=== PATIENT | male | born 1950 | race Two or more races ===

== ENCOUNTER 2020-01-02 19:28 | Emergency (ER) | payer MEDICARE, MEDICAID ==
[~2020-01-02] VITALS: Ht 172.7 cm; Wt 81.6 kg
[~2020-01-02 19:28] MED LIST: ALB2.5IS NEB; AMLO5TAB15 PO; ASPI81CH43 GT; ATOR40TA52 PO; BUDE160A3 INH; CARV6.2551 PO; CLOP75TA28 PO; DOCU-94 PO; GUAI100S6 PO; INSLANTI SC; LEVA3NEB9 IN; LEVAAER4 IN; LORA-352 PO; METF-370 PO; METF-372 PO; OMEP20CA74 OR; OXYC10TA44 PO; POTA-220 PO; TRIA25TA3 PO; ZOLP10TA6 PO
[2020-01-02 20:17] LABS: Basophils # (auto) 0 10 ^3/uL (0-0.2); Basophils % (auto) 0.5 % (0.0-2.0); Eosinophils # (auto) 0.2 10 ^3/uL (0-0.8); Hemoglobin 17.8 g/dL (13.5-17.5); Lymphocytes # (auto) 1.1 10 ^3/uL (0.4-5.4); Mean Corpuscular Hemoglobin 30.7 pg (28.0-32.0); Monocytes # (auto) 0.8 10 ^3/uL (0-1.3)
[2020-01-02 20:19] LABS: Eosinophils % (auto) 2.4 % (0.0-7.0); Hematocrit 52.6 % (41.0-53.0); Lymphocytes % (auto) 13.5 % (10.0-50.0); Mean Corpuscular Hgb Conc. 33.9 g/dL (32.0-36.0); Mean Corpuscular Volume 90.4 fL (80.0-100.0); Monocytes % (auto) 9.7 % (0.0-12.0); Neutrophils % (auto) 73.9 % (37.0-80.0); Nucleated Red Blood Cells % 0.2 %; Platelet Count (auto) 212 10^3/uL (140-450); Red Blood Cells 5.82 10^6/uL (4.5-5.90); Red Cell Distribution Width 13.8 % (11.8-14.3); White Blood Cell 8.1 10^3/uL (4.4-10.8)
[2020-01-02 20:37] LABS: Albumin 3.4 g/dL (3.4-5.0); BUN/Creatinine Ratio 14.7; Calcium 8.9 mg/dL (8.5-10.1); Potassium 3.7 mmol/L (3.5-5.1)
[2020-01-02 20:42] LABS: Bilirubin, Total 0.7 mg/dL (0.2-1.0); Total Protein 7.4 g/dL (6.4-8.2)
[2020-01-02 21:43] LABS: Urine WBC None Seen /hpf (0 - 3)
[2020-01-02 21:52] LABS: Urine Bacteria NONE SEEN /hpf (None Seen); Urine Blood Negative /uL (Negative); Urine Specific Gravity 1.006 (1.001-1.035)
[2020-01-02] MEDS ORDERED: IOHEXOL 350 MG/ML 100ML IJ ONE (22:27)
[2020-01-03] MEDS ORDERED: MORPHINE SULFATE 4 MG/ML SYR/VIAL IV ONE (05:15)
[2020-01-03] MEDS ORDERED: ONDANSETRON HCL 4 MG/2 ML VIAL IV ONE (05:15)
[2020-01-03 05:43] VITALS: BP 147/81
== END 2020-01-03 06:00 | disposition short-term general hospital (02) ==
LOC: ER 19:28
DX: I63.12 Cerebral infarction due to embolism of basilar artery (principal); I10 Essential (primary) hypertension; E11.9 Type 2 diabetes mellitus without complications; I25.10 Atherosclerotic heart disease of native coronary artery without angina pectoris; Z87.891 Personal history of nicotine dependence
CPT/HCPCS: 36415; 70450; 70496; 70498; 80053; 81001; 82962; 84484; 85025; 93005; 96374; 96375; 99285; J2270; J2405; Q9967

== ENCOUNTER 2020-11-03 12:43 | Emergency (ER) | payer OTHER, MEDICAID ==
[~2020-11-03] VITALS: Ht 172.7 cm; Wt 79.4 kg
[~2020-11-03 12:43] MED LIST changes: +AMLO-489 PO; -AMLO5TAB15 PO
[2020-11-03] MEDS ORDERED: PROMETHAZINE HCL 25 MG/ML 1ML IV ONE (13:45)
[2020-11-03] MEDS ORDERED: SODIUM CHLORIDE 0.9% 1,000 ML IV ONE (13:45)
[2020-11-03 14:13] LABS: Basophils # (auto) 0 10 ^3/uL (0-0.2); Basophils % (auto) 0.1 % (0.0-2.0); Eosinophils # (auto) 0 10 ^3/uL (0-0.8); Eosinophils % (auto) 0.1 % (0.0-7.0); Hematocrit 45.7 % (41.0-53.0); Hemoglobin 15.3 g/dL (13.5-17.5); Lymphocytes # (auto) 1.4 10 ^3/uL (0.4-5.4); Lymphocytes % (auto) 7.5 % (10.0-50.0); Mean Corpuscular Hemoglobin 30.4 pg (28.0-32.0); Mean Corpuscular Hgb Conc. 33.5 g/dL (32.0-36.0); Mean Corpuscular Volume 90.9 fL (80.0-100.0); Monocytes % (auto) 5.4 % (0.0-12.0); Neutrophils % (auto) 86.9 % (37.0-80.0); Platelet Count (auto) 248 10^3/uL (140-450); Red Blood Cells 5.02 10^6/uL (4.5-5.90); Red Cell Distribution Width 14.7 % (11.8-14.3); White Blood Cell 18.4 10^3/uL (4.4-10.8)
[2020-11-03 14:43] LABS: Urine Bacteria NONE SEEN /hpf (None Seen); Urine Blood Negative /uL (Negative); Urine Specific Gravity 1.022 (1.001-1.035); Urine WBC 9 /hpf (0 - 3)
[2020-11-03 14:55] LABS: Albumin 3.3 g/dL (3.4-5.0); Calcium 8.5 mg/dL (8.5-10.1); Magnesium 2.5 mg/dL (1.6-2.6); Potassium 4.5 mmol/L (3.5-5.1)
[2020-11-03 14:59] LABS: BUN/Creatinine Ratio 32.2; Bilirubin, Total 1.2 mg/dL (0.2-1.0); Total Protein 6.3 g/dL (6.4-8.2)
[2020-11-03 15:24] VITALS: BP 101/47
[2020-11-03] MEDS ORDERED: KETOROLAC TROMETH 30 MG/ML 1ML VIAL IV ONE (15:30)
[2020-11-03] MEDS ORDERED: InsuLIN REG 1unit/0.01ml Soln (100units/ml) SC ONE (16:30)
== END 2020-11-03 17:20 | disposition home or self-care (01) ==
LOC: ER 12:43
DX: K52.9 Noninfective gastroenteritis and colitis, unspecified (principal); E11.65 Type 2 diabetes mellitus with hyperglycemia; E11.21 Type 2 diabetes mellitus with diabetic nephropathy; E86.1 Hypovolemia; E86.0 Dehydration; J44.9 Chronic obstructive pulmonary disease, unspecified; K21.9 Gastro-esophageal reflux disease without esophagitis; E44.1 Mild protein-calorie malnutrition; Z68.26 Body mass index [BMI] 26.0-26.9, adult; Z98.61 Coronary angioplasty status; Z87.891 Personal history of nicotine dependence
CPT/HCPCS: 36415; 71045; 80053; 81001; 82962; 83735; 85025; 93005; 96361; 96372; 96374; 96375; 99285; J1815; J1885; J2550; J7030

== ENCOUNTER 2020-12-18 18:51 | Emergency (ER) | payer OTHER, MEDICAID ==
[~2020-12-18] VITALS: Ht 172.7 cm; Wt 77.1 kg
[~2020-12-18 18:51] MED LIST changes: -LORA-352 PO; +LORA10TA6 PO
[2020-12-18 20:00] LABS: Basophils # (auto) 0.1 10 ^3/uL (0-0.2); Basophils % (auto) 1.1 % (0.0-2.0); Eosinophils # (auto) 0.3 10 ^3/uL (0-0.8); Eosinophils % (auto) 4.2 % (0.0-7.0); Hematocrit 47.4 % (41.0-53.0); Hemoglobin 16.5 g/dL (13.5-17.5); Lymphocytes # (auto) 1.4 10 ^3/uL (0.4-5.4); Lymphocytes % (auto) 17.2 % (10.0-50.0); Mean Corpuscular Hemoglobin 31.7 pg (28.0-32.0); Mean Corpuscular Hgb Conc. 34.8 g/dL (32.0-36.0); Monocytes # (auto) 0.6 10 ^3/uL (0-1.3); Monocytes % (auto) 7.6 % (0.0-12.0); Neutrophils # (auto) 5.5 10 ^3/uL (1.6-8.6); Neutrophils % (auto) 69.9 % (37.0-80.0); Nucleated Red Blood Cells % 0.2 %; Platelet Count (auto) 221 10^3/uL (140-450); Red Blood Cells 5.21 10^6/uL (4.5-5.90); White Blood Cell 7.9 10^3/uL (4.4-10.8)
[2020-12-18 20:14] LABS: Albumin 3.5 g/dL (3.4-5.0); Calcium 9.1 mg/dL (8.5-10.1); Potassium 3.5 mmol/L (3.5-5.1)
[2020-12-18 20:18] LABS: BUN/Creatinine Ratio 15.5; Bilirubin, Total 0.6 mg/dL (0.2-1.0); Total Protein 6.8 g/dL (6.4-8.2)
[2020-12-18 20:50] VITALS: BP 132/70
== END 2020-12-18 22:47 | disposition home or self-care (01) ==
LOC: ER 18:52
DX: L03.116 Cellulitis of left lower limb (principal); I25.10 Atherosclerotic heart disease of native coronary artery without angina pectoris; J44.9 Chronic obstructive pulmonary disease, unspecified; E11.9 Type 2 diabetes mellitus without complications; K21.9 Gastro-esophageal reflux disease without esophagitis; E78.5 Hyperlipidemia, unspecified; I10 Essential (primary) hypertension; Z87.891 Personal history of nicotine dependence; Z98.61 Coronary angioplasty status; Z79.899 Other long term (current) drug therapy; Z79.82 Long term (current) use of aspirin
CPT/HCPCS: 36415; 80053; 85025; 93005; 93971

== ENCOUNTER 2022-07-26 05:16 | Inpatient (IN) | payer OTHER ==
[~2022-07-26] VITALS: Ht 157.5 cm; Wt 74.5 kg
[2022-07-26] MEDS ORDERED: SODIUM CHLORIDE 0.9% 1,000 ML IV ONE ×2 (06:00→12:45)
[2022-07-26 07:10] LABS: Hematocrit 48.3 % (41.0-53.0); Hemoglobin 15.5 g/dL (13.5-17.5); Mean Corpuscular Hemoglobin 31.2 pg (28.0-32.0); Mean Corpuscular Volume 97.5 fL (80.0-100.0); Red Blood Cells 4.96 10^6/uL (4.5-5.90); Red Cell Distribution Width 14.4 % (11.8-14.3); White Blood Cell 15.3 10^3/uL (4.4-10.8)
[2022-07-26 07:20] LABS: Basophils % (manual) 0 (0.0-2.0); Blast Cells 0; Eosinophils % (manual) 0 (0-7); Myelocytes % 0; Promyelocytes % 0; Reactive Lymphocytes 0
[2022-07-26 07:24] LABS: Albumin 3.5 g/dL (3.4-5.0); Calcium 9.2 mg/dL (8.5-10.1); Potassium 5.3 mmol/L (3.5-5.1)
[2022-07-26 07:28] LABS: BUN/Creatinine Ratio 35.5; Bilirubin, Total 1.7 mg/dL (0.2-1.0)
[2022-07-26] MEDS ORDERED: InsuLIN REG 1unit/0.01ml Soln (100units/ml) IV ONE (08:00)
[2022-07-26] MEDS ORDERED: SODIUM CHLORIDE 0.9% 1,000 ML IV SCH ×5 (08:00→15:15)
[2022-07-26] MEDS ORDERED: INSULIN LANTUS (GLARGINE) 1 /0.01ml (100units/ml) SC ONE ×2 (08:00→09:15)
[2022-07-26] MEDS ORDERED: DEXTROSE (50%) 50ML SYRG IV PRN ×2 (08:00→09:15)
[2022-07-26 08:36] LABS: Band Neutrophils % (manual) 7; Lymphocytes % (manual) 5 (10.0-50.0); Metamyelocytes % 1; Monocytes % (manual) 6 (0-12)
[2022-07-26] MEDS ORDERED: MORPHINE SULFATE INJ 2 MG/ml SYRG IV ONE (08:45)
[2022-07-26] MEDS ORDERED: ACCU-CHEK COMFORT CURVE STRIP VI SCH ×2 (09:00→10:30)
[2022-07-26 09:02] LABS: Magnesium 2.3 mg/dL (1.6-2.6); Phosphorus 7.5 mg/dL (2.5-4.90)
[2022-07-26] MEDS: SODIUM CHLORIDE 0.9% 1,000 ML IV SCH ×2 (09:15→11:15)
[2022-07-26 09:16] LABS: Calcium 9.1 mg/dL (8.5-10.1); Potassium 5.2 mmol/L (3.5-5.1)
[2022-07-26 09:25] LABS: BUN/Creatinine Ratio 36.7
[2022-07-26] MEDS ORDERED: NOREPINEPHRINE 8 MG/250ML KIT 250 ML IV ONE (09:49)
[2022-07-26] MEDS ORDERED: MIDAZOLAM HCL 5 MG/ML-1ML VIAL ONE (09:49)
[2022-07-26] MEDS: InsuLIN R (HUMAN) 100 UNITS in SODIUM CHL 0.9% 99 ML IV SCH (10:00)
[2022-07-26] MEDS: NOREPINEPHRINE 8 MG/250ML KIT 250 ML IV SCH (10:00)
[2022-07-26 10:01] LABS: BUN/Creatinine Ratio 34.3; Calcium 8.7 mg/dL (8.5-10.1); Magnesium 2.8 mg/dL (1.6-2.6); Potassium 4.3 mmol/L (3.5-5.1)
[2022-07-26 10:06] LABS: Phosphorus 7.7 mg/dL (2.5-4.90)
[2022-07-26] MEDS ORDERED: LORazepam MDV 2MG/ML 50 MG in SODIUM CHL 0.9% 25 ML IV SCH (10:15)
[2022-07-26 10:27] LABS: Hematocrit 44.8 % (41.0-53.0); Hemoglobin 14.2 g/dL (13.5-17.5); Mean Corpuscular Hemoglobin 31.2 pg (28.0-32.0); Mean Corpuscular Hgb Conc. 31.8 g/dL (32.0-36.0); Mean Corpuscular Volume 98.3 fL (80.0-100.0); Red Blood Cells 4.56 10^6/uL (4.5-5.90); Red Cell Distribution Width 15.1 % (11.8-14.3)
[2022-07-26 10:34] LABS: Basophils % (manual) 0 (0.0-2.0); Blast Cells 0; Eosinophils % (manual) 0 (0-7); Metamyelocytes % 0; Myelocytes % 0; Promyelocytes % 0; Reactive Lymphocytes 0
[2022-07-26] MEDS: fentaNYL Drip 2500mCg/250mlNS 250 ML IV SCH (11:50)
[2022-07-26] MEDS: ACCU-CHEK COMFORT CURVE STRIP VI SCH ×8 (11:52→22:51)
[2022-07-26] MEDS ORDERED: SODIUM BICARBONATE 8.4 % INJ 50ML VIAL IV ONE ×2 (12:00→13:30)
[2022-07-26] MEDS: MIDAZOLAM DRIP 50 mg/50mL 50 ML IV SCH ×3 (12:11→18:30)
[2022-07-26] MEDS ORDERED: SODIUM CHLORIDE 0.9% 2,000 ML IV ONE (12:45)
[2022-07-26] MEDS ORDERED: NITROGLYCERIN 0.4 MG SL TAB SL PRN (12:45)
[2022-07-26] MEDS ORDERED: MORPHINE SULFATE INJ 2 MG/ml SYRG IV PRN (12:45)
[2022-07-26] MEDS ORDERED: ONDANSETRON HCL 4 MG/2 ML VIAL IV PRN (12:45)
[2022-07-26] MEDS ORDERED: D5W/SOD CHL 0.45% 1,000 ML IV ONE (12:45)
[2022-07-26 13:25] LABS: Calcium 8.7 mg/dL (8.5-10.1); Potassium 4.5 mmol/L (3.5-5.1)
[2022-07-26 13:27] LABS: BUN/Creatinine Ratio 37.3
[2022-07-26 13:56] VITALS: BP 118/49
[2022-07-26 14:24] LABS: Band Neutrophils % (manual) 23; Lymphocytes % (manual) 9 (10.0-50.0); Monocytes % (manual) 8 (0-12)
[2022-07-26 14:42] VITALS: BP 109/49
[2022-07-26] MEDS: GABAPENTIN 100 MG CAP GT SCH ×2 (15:30→21:43)
[2022-07-26 15:50] VITALS: BP 129/59
[2022-07-26 16:31] LABS: BUN/Creatinine Ratio 36.7; Calcium 8.5 mg/dL (8.5-10.1)
[2022-07-26 19:21] LABS: BUN/Creatinine Ratio 36.5; Calcium 8.7 mg/dL (8.5-10.1); Potassium 3.6 mmol/L (3.5-5.1)
[2022-07-26 20:15] VITALS: BP 140/62
[2022-07-26 22:03] LABS: BUN/Creatinine Ratio 36.7; Calcium 8.5 mg/dL (8.5-10.1); Potassium 3.8 mmol/L (3.5-5.1)
[2022-07-26 22:16] VITALS: BP 140/62
[2022-07-27] VITALS (11 sets, daily range): BP systolic 94–144; BP diastolic 56–65
[2022-07-27 01:16] LABS: Calcium 8.7 mg/dL (8.5-10.1); Potassium 3.8 mmol/L (3.5-5.1)
[2022-07-27 01:18] LABS: BUN/Creatinine Ratio 36.9
[2022-07-27] MEDS: ACCU-CHEK COMFORT CURVE STRIP VI SCH ×9 (01:35→20:26)
[2022-07-27 03:16] LABS: BUN/Creatinine Ratio 35.1; Calcium 8.6 mg/dL (8.5-10.1); Potassium 3.8 mmol/L (3.5-5.1)
[2022-07-27] MEDS: D5W/SOD CHL 0.45%/KCL 20MEQ 1,000 ML IV SCH ×3 (03:17→14:11)
[2022-07-27] MEDS: GABAPENTIN 100 MG CAP GT SCH ×3 (06:00→21:43)
[2022-07-27 06:36] LABS: Basophils # (auto) 0 10 ^3/uL (0-0.2); Basophils % (auto) 0.1 % (0.0-2.0); Eosinophils # (auto) 0 10 ^3/uL (0-0.8); Hematocrit 48.4 % (41.0-53.0); Hemoglobin 15.7 g/dL (13.5-17.5); Lymphocytes % (auto) 5.3 % (10.0-50.0); Mean Corpuscular Hemoglobin 30.6 pg (28.0-32.0); Mean Corpuscular Hgb Conc. 32.4 g/dL (32.0-36.0); Mean Corpuscular Volume 94.2 fL (80.0-100.0); Monocytes # (auto) 2.2 10 ^3/uL (0-1.3); Monocytes % (auto) 11.6 % (0.0-12.0); Neutrophils # (auto) 15.8 10 ^3/uL (1.6-8.6); Red Blood Cells 5.13 10^6/uL (4.5-5.90); Red Cell Distribution Width 14.5 % (11.8-14.3)
[2022-07-27 07:01] LABS: Albumin 2.8 g/dL (3.4-5.0); BUN/Creatinine Ratio 35.4; Calcium 8.1 mg/dL (8.5-10.1)
[2022-07-27 07:03] LABS: Bilirubin, Total 0.8 mg/dL (0.2-1.0); Total Protein 5.8 g/dL (6.4-8.2)
[2022-07-27] MEDS ORDERED: DEXTROSE (50%) 50ML SYRG IV PRN (08:45)
[2022-07-27] MEDS: InsuLIN R (HUMAN) 100 UNITS in SODIUM CHL 0.9% 99 ML IV SCH (09:15)
[2022-07-27] MEDS ORDERED: MIDAZOLAM HCL 10 ML IV ONE (09:41)
[2022-07-27] MEDS: NOREPINEPHRINE 8 MG/250ML KIT 250 ML IV SCH ×2 (10:00→16:21)
[2022-07-27] MEDS: MIDAZOLAM DRIP 50 mg/50mL 50 ML IV SCH ×2 (10:00→14:05)
[2022-07-27] MEDS ORDERED: INSULIN LANTUS (GLARGINE) 1 /0.01ml (100units/ml) SC SCH ×2 (10:00)
[2022-07-27] MEDS: INSULIN LANTUS (GLARGINE) 1 /0.01ml (100units/ml) SC SCH (10:14)
[2022-07-27] MEDS: CLOPIDOGREL BISULFATE 75 MG TAB GT SCH (10:16)
[2022-07-27] MEDS: ASPirin 81 mg TAB GT SCH (10:16)
[2022-07-27] MEDS: fentaNYL Drip 2500mCg/250mlNS 250 ML IV SCH ×2 (11:30→14:04)
[2022-07-27] MEDS: InsuLIN REG 1unit/0.01ml Soln (100units/ml) SC SCH ×3 (12:00→20:00)
[2022-07-27] MEDS: FREE WATER GT SCH ×2 (12:37→18:08)
[2022-07-27 13:40] LABS: Calcium 8.6 mg/dL (8.5-10.1); Potassium 3.7 mmol/L (3.5-5.1)
[2022-07-27 13:41] LABS: BUN/Creatinine Ratio 30.3
[2022-07-27] MEDS: SODIUM CHLORIDE 0.9% 1,000 ML IV SCH (15:00)
[2022-07-27 16:55] LABS: Urine Bacteria NONE SEEN /hpf (None Seen); Urine Blood 3+ /uL (Negative); Urine Specific Gravity 1.028 (1.001-1.035); Urine WBC 64 /hpf (0 - 3)
[2022-07-28] VITALS (12 sets, daily range): BP systolic 110–152; BP diastolic 52–64
[2022-07-28] MEDS: ACCU-CHEK COMFORT CURVE STRIP VI SCH ×7 (00:24→23:49)
[2022-07-28] MEDS: FREE WATER GT SCH ×4 (00:36→17:28)
[2022-07-28] MEDS: SODIUM CHLORIDE 0.9% 1,000 ML IV SCH ×2 (01:15→11:27)
[2022-07-28] MEDS: InsuLIN REG 1unit/0.01ml Soln (100units/ml) SC SCH ×7 (04:49→23:50)
[2022-07-28] MEDS: GABAPENTIN 100 MG CAP GT SCH ×3 (06:00→21:48)
[2022-07-28] MEDS: InsuLIN R (HUMAN) 100 UNITS in SODIUM CHL 0.9% 99 ML IV SCH (09:15)
[2022-07-28] MEDS: ASPirin 81 mg TAB GT SCH (09:57)
[2022-07-28] MEDS: CLOPIDOGREL BISULFATE 75 MG TAB GT SCH (09:57)
[2022-07-28] MEDS: cefTRIAXone 1GM/50ML D5W 50 ML IV SCH (09:57)
[2022-07-28] MEDS: INSULIN LANTUS (GLARGINE) 1 /0.01ml (100units/ml) SC SCH (10:09)
[2022-07-28 10:21] LABS: Basophils # (auto) 0 10 ^3/uL (0-0.2); Basophils % (auto) 0.1 % (0.0-2.0); Eosinophils # (auto) 0 10 ^3/uL (0-0.8); Hematocrit 45.5 % (41.0-53.0); Hemoglobin 15.2 g/dL (13.5-17.5); Lymphocytes # (auto) 0.8 10 ^3/uL (0.4-5.4); Lymphocytes % (auto) 8.3 % (10.0-50.0); Mean Corpuscular Hemoglobin 30.7 pg (28.0-32.0); Mean Corpuscular Hgb Conc. 33.3 g/dL (32.0-36.0); Mean Corpuscular Volume 92.2 fL (80.0-100.0); Monocytes # (auto) 0.8 10 ^3/uL (0-1.3); Neutrophils # (auto) 7.6 10 ^3/uL (1.6-8.6); Neutrophils % (auto) 82.6 % (37.0-80.0); Nucleated Red Blood Cells % 0.1 %; Red Blood Cells 4.93 10^6/uL (4.5-5.90); Red Cell Distribution Width 14.7 % (11.8-14.3); White Blood Cell 9.2 10^3/uL (4.4-10.8)
[2022-07-28 10:23] LABS: BUN/Creatinine Ratio 34.3; Calcium 8.2 mg/dL (8.5-10.1); Potassium 3.5 mmol/L (3.5-5.1)
[2022-07-28] MEDS: ACETAMINOPHEN 325 MG TAB PO PRN ×2 (15:33→23:22)
[2022-07-28] MEDS: MIDAZOLAM DRIP 50 mg/50mL 50 ML IV SCH (19:30)
[2022-07-28] MEDS: SOD CHL 0.45% 1,000 ML IV SCH (20:48)
[2022-07-29] VITALS (8 sets, daily range): BP systolic 112–199; BP diastolic 51–98
[2022-07-29] MEDS: FREE WATER GT SCH ×7 (00:11→22:00)
[2022-07-29] MEDS: MIDAZOLAM DRIP 50 mg/50mL 50 ML IV SCH ×2 (02:33→23:15)
[2022-07-29] MEDS: ACCU-CHEK COMFORT CURVE STRIP VI SCH ×5 (03:38→20:52)
[2022-07-29] MEDS: InsuLIN REG 1unit/0.01ml Soln (100units/ml) SC SCH ×5 (03:38→21:03)
[2022-07-29 04:41] LABS: Basophils # (auto) 0 10 ^3/uL (0-0.2); Basophils % (auto) 0.6 % (0.0-2.0); Eosinophils # (auto) 0 10 ^3/uL (0-0.8); Eosinophils % (auto) 0.1 % (0.0-7.0); Hematocrit 40.5 % (41.0-53.0); Hemoglobin 14.1 g/dL (13.5-17.5); Lymphocytes # (auto) 0.8 10 ^3/uL (0.4-5.4); Lymphocytes % (auto) 10.4 % (10.0-50.0); Mean Corpuscular Hgb Conc. 34.9 g/dL (32.0-36.0); Mean Corpuscular Volume 91.6 fL (80.0-100.0); Monocytes # (auto) 0.5 10 ^3/uL (0-1.3); Monocytes % (auto) 5.8 % (0.0-12.0); Neutrophils # (auto) 6.5 10 ^3/uL (1.6-8.6); Neutrophils % (auto) 83.1 % (37.0-80.0); Nucleated Red Blood Cells % 0.1 %; Red Blood Cells 4.42 10^6/uL (4.5-5.90); Red Cell Distribution Width 14.4 % (11.8-14.3); White Blood Cell 7.8 10^3/uL (4.4-10.8)
[2022-07-29 05:06] LABS: BUN/Creatinine Ratio 43.9; Calcium 8.1 mg/dL (8.5-10.1)
[2022-07-29 05:28] LABS: Potassium 2.9 mmol/L (3.5-5.1)
[2022-07-29] MEDS: POTASSIUM CHL 20MEQ/100ML 100 ML IV SCH ×3 (06:15→10:21)
[2022-07-29] MEDS: GABAPENTIN 100 MG CAP GT SCH ×3 (06:18→22:00)
[2022-07-29] MEDS: SOD CHL 0.45% 1,000 ML IV SCH ×2 (09:14→16:30)
[2022-07-29] MEDS: InsuLIN R (HUMAN) 100 UNITS in SODIUM CHL 0.9% 99 ML IV SCH (09:15)
[2022-07-29] MEDS: cefTRIAXone 1GM/50ML D5W 50 ML IV SCH (09:16)
[2022-07-29] MEDS: INSULIN LANTUS (GLARGINE) 1 /0.01ml (100units/ml) SC SCH (10:00)
[2022-07-29] MEDS: NOREPINEPHRINE 8 MG/250ML KIT 250 ML IV SCH (10:00)
[2022-07-29] MEDS: ASPirin 81 mg TAB GT SCH (10:20)
[2022-07-29] MEDS: CLOPIDOGREL BISULFATE 75 MG TAB GT SCH (10:20)
[2022-07-29] MEDS: fentaNYL Drip 2500mCg/250mlNS 250 ML IV SCH (11:30)
[2022-07-29 14:34] LABS: Potassium 3.6 mmol/L (3.5-5.1)
[2022-07-29 14:36] LABS: Magnesium 1.7 mg/dL (1.6-2.6)
[2022-07-29] MEDS ORDERED: ACETAMINOPHEN 650 MG RECT SUPP PR PRN (20:30)
[2022-07-29] MEDS ORDERED: ALBUTEROL SULF 2.5 MG/0.5ML(0.5%) NEB SOLN NEB PRN (20:45)
[2022-07-29] MEDS ORDERED: MORPHINE SULFATE 4 MG/ML SYR/VIAL IV PRN (20:45)
[2022-07-29] MEDS ORDERED: IPRATROPIUM BROM 0.5 MG/2.5ML INH SOL NEB PRN (20:45)
[2022-07-29] MEDS ORDERED: LORazepam 2MG/ML-1ML VIAL IV ONE (21:00)
[2022-07-29] MEDS: MORPHINE SULFATE INJ 2 MG/ml SYRG IV PRN (21:44)
[2022-07-29] MEDS ORDERED: ETOMIDATE (2MG/ML) 20ML VIAL IV ONE (23:00)
[2022-07-29] MEDS ORDERED: ROCURONIUM 10MG/ML 10ML VIAL IV ONE (23:00)
[2022-07-29] MEDS: PROPOFOL 100 ML IV SCH (23:22)
[2022-07-29] MEDS ORDERED: PROPOFOL 100 ML IV ONE (23:22)
[2022-07-30] VITALS (76 sets, daily range): BP systolic 63–175; BP diastolic 36–68
[2022-07-30] MEDS: fentaNYL Drip 2500mCg/250mlNS 250 ML IV SCH (01:27)
[2022-07-30] MEDS: ACCU-CHEK COMFORT CURVE STRIP VI SCH ×12 (01:33→23:58)
[2022-07-30] MEDS: InsuLIN REG 1unit/0.01ml Soln (100units/ml) SC SCH ×3 (01:40→08:29)
[2022-07-30] MEDS: FREE WATER GT SCH ×6 (02:00→21:49)
[2022-07-30] MEDS: SOD CHL 0.45% 1,000 ML IV SCH ×3 (02:30→22:03)
[2022-07-30] MEDS ORDERED: SODIUM BICARBONATE 50ML VIAL 50 ML in SOD CHL 0.45% 1,000 ML IV SCH (03:30)
[2022-07-30] MEDS ORDERED: SODIUM BICARBONATE 8.4 % INJ 50ML VIAL IV ONE (03:45)
[2022-07-30 04:43] LABS: Basophils # (auto) 0 10 ^3/uL (0-0.2); Basophils % (auto) 0.1 % (0.0-2.0); Eosinophils # (auto) 0 10 ^3/uL (0-0.8); Eosinophils % (auto) 0.1 % (0.0-7.0); Hematocrit 42.3 % (41.0-53.0); Hemoglobin 13.7 g/dL (13.5-17.5); Lymphocytes # (auto) 0.6 10 ^3/uL (0.4-5.4); Lymphocytes % (auto) 6.2 % (10.0-50.0); Mean Corpuscular Hemoglobin 30.9 pg (28.0-32.0); Mean Corpuscular Hgb Conc. 32.5 g/dL (32.0-36.0); Mean Corpuscular Volume 95.3 fL (80.0-100.0); Monocytes # (auto) 0.7 10 ^3/uL (0-1.3); Monocytes % (auto) 7.7 % (0.0-12.0); Neutrophils # (auto) 8.3 10 ^3/uL (1.6-8.6); Neutrophils % (auto) 85.9 % (37.0-80.0); Red Blood Cells 4.44 10^6/uL (4.5-5.90); Red Cell Distribution Width 14.9 % (11.8-14.3); White Blood Cell 9.6 10^3/uL (4.4-10.8)
[2022-07-30 05:02] LABS: BUN/Creatinine Ratio 34.9; Calcium 8.4 mg/dL (8.5-10.1); Potassium 4.1 mmol/L (3.5-5.1)
[2022-07-30] MEDS: NOREPINEPHRINE 8 MG/250ML KIT 250 ML IV SCH (05:30)
[2022-07-30] MEDS: GABAPENTIN 100 MG CAP GT SCH ×3 (05:39→21:49)
[2022-07-30] MEDS: MIDAZOLAM DRIP 50 mg/50mL 50 ML IV SCH ×3 (06:29→23:44)
[2022-07-30] MEDS: PROPOFOL 100 ML IV SCH ×2 (06:30→11:59)
[2022-07-30] MEDS: ASPirin 81 mg TAB GT SCH (08:23)
[2022-07-30] MEDS: CLOPIDOGREL BISULFATE 75 MG TAB GT SCH (08:23)
[2022-07-30] MEDS: cefTRIAXone 1GM/50ML D5W 50 ML IV SCH (08:25)
[2022-07-30] MEDS: INSULIN LANTUS (GLARGINE) 1 /0.01ml (100units/ml) SC SCH (08:29)
[2022-07-30 08:55] LABS: BUN/Creatinine Ratio 34.1; Calcium 8.3 mg/dL (8.5-10.1); Potassium 3.8 mmol/L (3.5-5.1)
[2022-07-30] MEDS ORDERED: InsuLIN R (HUMAN) 100 UNITS in SODIUM CHL 0.9% 99 ML IV SCH ×2 (11:45→15:15)
[2022-07-30] MEDS ORDERED: DEXTROSE (50%) 50ML SYRG IV PRN (11:45)
[2022-07-30] MEDS: D5W/SOD CHL 0.45% 1,000 ML IV SCH ×2 (12:05→21:49)
[2022-07-30] MEDS ORDERED: IOHEXOL 300 MG/ML 100ML BOTTLE IJ ONE (16:10)
[2022-07-30] MEDS ORDERED: VANCOMYCIN PER PHARMACY 0 MG IV SCH (20:45)
[2022-07-30] MEDS ORDERED: VANCOMYCIN 1GM/250ML 250 ML IV ONE (20:45)
[2022-07-31] VITALS (100 sets, daily range): BP systolic 70–170; BP diastolic 33–61
[2022-07-31] MEDS: FREE WATER GT SCH ×4 (01:38→14:18)
[2022-07-31] MEDS: ACCU-CHEK COMFORT CURVE STRIP VI SCH ×12 (01:38→23:04)
[2022-07-31 05:18] LABS: Calcium 8.2 mg/dL (8.5-10.1)
[2022-07-31 05:25] LABS: Basophils # (auto) 0 10 ^3/uL (0-0.2); Basophils % (auto) 0.3 % (0.0-2.0); Eosinophils # (auto) 0.7 10 ^3/uL (0-0.8); Eosinophils % (auto) 8.6 % (0.0-7.0); Hematocrit 40.2 % (41.0-53.0); Hemoglobin 13.7 g/dL (13.5-17.5); Lymphocytes # (auto) 1.1 10 ^3/uL (0.4-5.4); Lymphocytes % (auto) 13.4 % (10.0-50.0); Mean Corpuscular Hemoglobin 31.2 pg (28.0-32.0); Mean Corpuscular Hgb Conc. 34.1 g/dL (32.0-36.0); Mean Corpuscular Volume 91.5 fL (80.0-100.0); Monocytes # (auto) 0.6 10 ^3/uL (0-1.3); Monocytes % (auto) 7.6 % (0.0-12.0); Neutrophils # (auto) 5.8 10 ^3/uL (1.6-8.6); Neutrophils % (auto) 70.1 % (37.0-80.0); Nucleated Red Blood Cells % 0.1 %; Red Blood Cells 4.39 10^6/uL (4.5-5.90); Red Cell Distribution Width 14.1 % (11.8-14.3); White Blood Cell 8.3 10^3/uL (4.4-10.8)
[2022-07-31 05:59] LABS: Potassium 2.8 mmol/L (3.5-5.1)
[2022-07-31] MEDS: GABAPENTIN 100 MG CAP GT SCH ×3 (06:25→21:03)
[2022-07-31] MEDS: POTASSIUM CHL 20MEQ/100ML 100 ML IV SCH ×5 (06:28→14:51)
[2022-07-31] MEDS: D5W/SOD CHL 0.45% 1,000 ML IV SCH ×3 (07:45→23:25)
[2022-07-31] MEDS: cefTRIAXone 1GM/50ML D5W 50 ML IV SCH (07:45)
[2022-07-31] MEDS: SOD CHL 0.45% 1,000 ML IV SCH (08:30)
[2022-07-31] MEDS: PROPOFOL 100 ML IV SCH ×2 (09:16→17:15)
[2022-07-31] MEDS: ASPirin 81 mg TAB GT SCH (09:17)
[2022-07-31] MEDS: CLOPIDOGREL BISULFATE 75 MG TAB GT SCH (09:17)
[2022-07-31] MEDS: MUPIROCIN 2% OINT 15gm or 22gm FOR MRSA NARES EACHNOSTRI SCH ×2 (09:30→21:03)
[2022-07-31] MEDS: INSULIN LANTUS (GLARGINE) 1 /0.01ml (100units/ml) SC SCH (09:39)
[2022-07-31] MEDS: NOREPINEPHRINE 8 MG/250ML KIT 250 ML IV SCH (10:00)
[2022-07-31] MEDS: fentaNYL Drip 2500mCg/250mlNS 250 ML IV SCH (11:30)
[2022-07-31] MEDS: MIDAZOLAM DRIP 50 mg/50mL 50 ML IV SCH ×2 (12:51→17:14)
[2022-07-31] MEDS: MAGNESIUM SULFATE 1GM/100ML 100 ML IV SCH ×3 (12:52→14:51)
[2022-07-31 13:21] LABS: BUN/Creatinine Ratio 22.4; Calcium 8.3 mg/dL (8.5-10.1); Phosphorus 1.4 mg/dL (2.5-4.90); Potassium 3.3 mmol/L (3.5-5.1)
[2022-07-31] MEDS ORDERED: SODIUM PHOSPHATES 40 MEQ in D5W 5% 250 ML IV ONE (14:30)
[2022-07-31] MEDS ORDERED: DEXTROSE (50%) 50ML SYRG IV PRN (14:45)
[2022-07-31] MEDS: VANCOMYCIN 1GM/250ML 250 ML IV SCH (14:51)
[2022-07-31] MEDS: InsuLIN REG 1unit/0.01ml Soln (100units/ml) SC SCH ×3 (16:11→23:26)
[2022-07-31 18:34] LABS: BUN/Creatinine Ratio 21.6; Calcium 7.7 mg/dL (8.5-10.1); Potassium 3.4 mmol/L (3.5-5.1)
[2022-08-01] VITALS (100 sets, daily range): BP systolic 105–189; BP diastolic 47–87
[2022-08-01 00:47] LABS: BUN/Creatinine Ratio 20.4
[2022-08-01] MEDS: POTASSIUM CHL 20MEQ/100ML 100 ML IV SCH ×3 (01:15→04:47)
[2022-08-01] MEDS: ACCU-CHEK COMFORT CURVE STRIP VI SCH ×5 (03:29→20:00)
[2022-08-01] MEDS: InsuLIN REG 1unit/0.01ml Soln (100units/ml) SC SCH ×5 (03:29→20:00)
[2022-08-01] MEDS: GABAPENTIN 100 MG CAP GT SCH ×3 (05:03→22:59)
[2022-08-01] MEDS: VANCOMYCIN 1GM/250ML 250 ML IV SCH (05:03)
[2022-08-01 07:25] LABS: Basophils # (auto) 0 10 ^3/uL (0-0.2); Basophils % (auto) 0.6 % (0.0-2.0); Eosinophils # (auto) 0.8 10 ^3/uL (0-0.8); Eosinophils % (auto) 12.8 % (0.0-7.0); Hematocrit 38.2 % (41.0-53.0); Hemoglobin 13.5 g/dL (13.5-17.5); Lymphocytes # (auto) 0.9 10 ^3/uL (0.4-5.4); Lymphocytes % (auto) 14.4 % (10.0-50.0); Mean Corpuscular Hemoglobin 31.9 pg (28.0-32.0); Mean Corpuscular Hgb Conc. 35.2 g/dL (32.0-36.0); Mean Corpuscular Volume 90.8 fL (80.0-100.0); Monocytes # (auto) 0.6 10 ^3/uL (0-1.3); Monocytes % (auto) 8.8 % (0.0-12.0); Neutrophils # (auto) 4.1 10 ^3/uL (1.6-8.6); Neutrophils % (auto) 63.4 % (37.0-80.0); Nucleated Red Blood Cells % 0.1 %; Red Blood Cells 4.21 10^6/uL (4.5-5.90); Red Cell Distribution Width 14.2 % (11.8-14.3); White Blood Cell 6.5 10^3/uL (4.4-10.8)
[2022-08-01 07:31] LABS: Calcium 7.9 mg/dL (8.5-10.1); Phosphorus 2.5 mg/dL (2.5-4.90); Potassium 3.9 mmol/L (3.5-5.1)
[2022-08-01] MEDS ORDERED: LIDOCAINE 2% JELLY 11ml (GLYDO) ONE (08:31)
[2022-08-01] MEDS: cefTRIAXone 1GM/50ML D5W 50 ML IV SCH (08:33)
[2022-08-01] MEDS ORDERED: EPINEPHrine HCL 1 MG/1 ML AMP ONE ×2 (08:35→08:41)
[2022-08-01] MEDS: PROPOFOL 100 ML IV SCH (08:37)
[2022-08-01] MEDS: PANTOPRAZOLE 40 MG/10 ML VIAL INJ IV SCH (10:02)
[2022-08-01] MEDS: ASPirin 81 mg TAB GT SCH (10:02)
[2022-08-01] MEDS: CLOPIDOGREL BISULFATE 75 MG TAB GT SCH (10:02)
[2022-08-01] MEDS: MUPIROCIN 2% OINT 15gm or 22gm FOR MRSA NARES EACHNOSTRI SCH ×2 (10:03→22:59)
[2022-08-01] MEDS: INSULIN LANTUS (GLARGINE) 1 /0.01ml (100units/ml) SC SCH (10:06)
[2022-08-01] MEDS: fentaNYL Drip 2500mCg/250mlNS 250 ML IV SCH (11:30)
[2022-08-01] MEDS: NOREPINEPHRINE 8 MG/250ML KIT 250 ML IV SCH (11:46)
[2022-08-01] MEDS: MOXIFLOXACIN OP SCH ×3 (13:26→22:59)
[2022-08-01] MEDS: prednisoLONE ACETATE 1% OPTH SUSP 5ML RIGHTEYE SCH ×3 (15:15→23:00)
[2022-08-01] MEDS: ACETAMINOPHEN 325 MG TAB PO PRN (17:37)
[2022-08-01 18:50] LABS: BUN/Creatinine Ratio 26.5; Calcium 8.5 mg/dL (8.5-10.1)
[2022-08-01] MEDS: MORPHINE SULFATE INJ 2 MG/ml SYRG IV PRN (21:25)
[2022-08-02] VITALS (81 sets, daily range): BP systolic 68–181; BP diastolic 38–80
[2022-08-02] MEDS: ACCU-CHEK COMFORT CURVE STRIP VI SCH ×6 (00:17→20:00)
[2022-08-02] MEDS: hydrALAZINE HCL 20 MG/ML VL IV PRN (00:32)
[2022-08-02] MEDS: ACETAMINOPHEN 325 MG TAB PO PRN ×2 (00:34→16:52)
[2022-08-02 00:58] LABS: Anion Gap 7 (5-15); BUN/Creatinine Ratio 20.6; Blood Urea Nitrogen 7 mg/dL (7-18); Calcium 8.6 mg/dL (8.5-10.1); Carbon Dioxide 24 mmol/L (21-32); Chloride 110 mmol/L (98-107); GFR African American 328 mL/min; GFR Non-African American 271 mL/min; Glucose 85 mg/dL (74-106); Potassium 3.9 mmol/L (3.5-5.1); Sodium 141 mmol/L (136-145)
[2022-08-02] MEDS: PROPOFOL 100 ML IV SCH ×2 (03:50→10:59)
[2022-08-02] MEDS: InsuLIN REG 1unit/0.01ml Soln (100units/ml) SC SCH ×6 (04:00→22:37)
[2022-08-02 04:21] LABS: Basophils # (auto) 0 10 ^3/uL (0-0.2); Basophils % (auto) 0.5 % (0.0-2.0); Eosinophils # (auto) 0.6 10 ^3/uL (0-0.8); Eosinophils % (auto) 6.7 % (0.0-7.0); Hematocrit 41.5 % (41.0-53.0); Hemoglobin 14.6 g/dL (13.5-17.5); Lymphocytes # (auto) 0.9 10 ^3/uL (0.4-5.4); Lymphocytes % (auto) 10.8 % (10.0-50.0); Mean Corpuscular Hemoglobin 32.2 pg (28.0-32.0); Mean Corpuscular Hgb Conc. 35.2 g/dL (32.0-36.0); Mean Corpuscular Volume 91.3 fL (80.0-100.0); Monocytes % (auto) 11.9 % (0.0-12.0); Neutrophils % (auto) 70.1 % (37.0-80.0); Red Blood Cells 4.55 10^6/uL (4.5-5.90); Red Cell Distribution Width 14.1 % (11.8-14.3); White Blood Cell 8.6 10^3/uL (4.4-10.8)
[2022-08-02 04:32] LABS: BUN/Creatinine Ratio 27.6; Calcium 8.3 mg/dL (8.5-10.1); Potassium 3.9 mmol/L (3.5-5.1)
[2022-08-02] MEDS: GABAPENTIN 100 MG CAP GT SCH ×3 (06:14→22:38)
[2022-08-02] MEDS: MOXIFLOXACIN OP SCH ×4 (06:14→22:39)
[2022-08-02] MEDS: prednisoLONE ACETATE 1% OPTH SUSP 5ML RIGHTEYE SCH ×4 (06:15→22:39)
[2022-08-02] MEDS: cefTRIAXone 1GM/50ML D5W 50 ML IV SCH (08:18)
[2022-08-02] MEDS ORDERED: FUROSEMIDE 40 MG/4 ML VIAL IV ONE (09:00)
[2022-08-02] MEDS: MUPIROCIN 2% OINT 15gm or 22gm FOR MRSA NARES EACHNOSTRI SCH ×2 (09:45→22:38)
[2022-08-02] MEDS: PANTOPRAZOLE 40 MG/10 ML VIAL INJ IV SCH (09:56)
[2022-08-02] MEDS: ASPirin 81 mg TAB GT SCH (10:00)
[2022-08-02] MEDS: CLOPIDOGREL BISULFATE 75 MG TAB GT SCH (10:00)
[2022-08-02] MEDS: NOREPINEPHRINE 8 MG/250ML KIT 250 ML IV SCH (10:00)
[2022-08-02] MEDS: INSULIN LANTUS (GLARGINE) 1 /0.01ml (100units/ml) SC SCH (10:02)
[2022-08-02] MEDS: fentaNYL Drip 2500mCg/250mlNS 250 ML IV SCH (11:30)
[2022-08-02 12:44] LABS: BUN/Creatinine Ratio 21.1; Calcium 8.3 mg/dL (8.5-10.1); Potassium 3.7 mmol/L (3.5-5.1)
[2022-08-03] VITALS (32 sets, daily range): BP systolic 101–175; BP diastolic 45–68
[2022-08-03 01:08] LABS: BUN/Creatinine Ratio 31.9; Calcium 8.5 mg/dL (8.5-10.1); Potassium 3.7 mmol/L (3.5-5.1)
[2022-08-03] MEDS: ACCU-CHEK COMFORT CURVE STRIP VI SCH ×6 (01:33→20:43)
[2022-08-03] MEDS: InsuLIN REG 1unit/0.01ml Soln (100units/ml) SC SCH ×6 (01:35→20:44)
[2022-08-03 04:16] LABS: Basophils # (auto) 0 10 ^3/uL (0-0.2); Basophils % (auto) 0.4 % (0.0-2.0); Eosinophils # (auto) 0.3 10 ^3/uL (0-0.8); Eosinophils % (auto) 4.7 % (0.0-7.0); Hematocrit 40.6 % (41.0-53.0); Hemoglobin 13.8 g/dL (13.5-17.5); Lymphocytes % (auto) 13.7 % (10.0-50.0); Mean Corpuscular Hemoglobin 31.4 pg (28.0-32.0); Mean Corpuscular Hgb Conc. 34.1 g/dL (32.0-36.0); Mean Corpuscular Volume 92.2 fL (80.0-100.0); Monocytes # (auto) 0.7 10 ^3/uL (0-1.3); Monocytes % (auto) 10.5 % (0.0-12.0); Neutrophils % (auto) 70.7 % (37.0-80.0); Red Cell Distribution Width 14.1 % (11.8-14.3); White Blood Cell 7.1 10^3/uL (4.4-10.8)
[2022-08-03 04:37] LABS: Calcium 8.6 mg/dL (8.5-10.1); Potassium 3.7 mmol/L (3.5-5.1)
[2022-08-03] MEDS: GABAPENTIN 100 MG CAP GT SCH ×4 (06:34→22:32)
[2022-08-03] MEDS: MOXIFLOXACIN OP SCH ×4 (06:35→22:32)
[2022-08-03] MEDS: prednisoLONE ACETATE 1% OPTH SUSP 5ML RIGHTEYE SCH ×4 (06:35→22:33)
[2022-08-03] MEDS: ASPirin 81 mg TAB GT SCH (09:59)
[2022-08-03] MEDS: cefTRIAXone 1GM/50ML D5W 50 ML IV SCH (09:59)
[2022-08-03] MEDS: PANTOPRAZOLE 40 MG/10 ML VIAL INJ IV SCH (10:00)
[2022-08-03] MEDS: CLOPIDOGREL BISULFATE 75 MG TAB GT SCH (10:00)
[2022-08-03] MEDS: NOREPINEPHRINE 8 MG/250ML KIT 250 ML IV SCH (10:00)
[2022-08-03] MEDS: INSULIN LANTUS (GLARGINE) 1 /0.01ml (100units/ml) SC SCH (10:01)
[2022-08-03] MEDS: MUPIROCIN 2% OINT 15gm or 22gm FOR MRSA NARES EACHNOSTRI SCH ×2 (10:01→22:32)
[2022-08-03] MEDS: fentaNYL Drip 2500mCg/250mlNS 250 ML IV SCH (11:30)
[2022-08-03 14:29] LABS: Calcium 8.7 mg/dL (8.5-10.1); Potassium 4.3 mmol/L (3.5-5.1)
[2022-08-03 18:44] LABS: BUN/Creatinine Ratio 41.5; Potassium 3.5 mmol/L (3.5-5.1)
[2022-08-04] VITALS (21 sets, daily range): BP systolic 99–167; BP diastolic 54–75
[2022-08-04 01:07] LABS: BUN/Creatinine Ratio 37.2; Calcium 8.5 mg/dL (8.5-10.1); Potassium 3.3 mmol/L (3.5-5.1)
[2022-08-04 04:22] LABS: Basophils # (auto) 0 10 ^3/uL (0-0.2); Basophils % (auto) 0.3 % (0.0-2.0); Eosinophils # (auto) 0.2 10 ^3/uL (0-0.8); Eosinophils % (auto) 2.2 % (0.0-7.0); Hematocrit 39.7 % (41.0-53.0); Hemoglobin 13.7 g/dL (13.5-17.5); Lymphocytes # (auto) 1.1 10 ^3/uL (0.4-5.4); Mean Corpuscular Hemoglobin 31.8 pg (28.0-32.0); Mean Corpuscular Hgb Conc. 34.5 g/dL (32.0-36.0); Mean Corpuscular Volume 92.2 fL (80.0-100.0); Monocytes # (auto) 1.2 10 ^3/uL (0-1.3); Monocytes % (auto) 11.2 % (0.0-12.0); Neutrophils # (auto) 8.2 10 ^3/uL (1.6-8.6); Neutrophils % (auto) 76.3 % (37.0-80.0); Red Cell Distribution Width 13.8 % (11.8-14.3); White Blood Cell 10.8 10^3/uL (4.4-10.8)
[2022-08-04] MEDS: ACCU-CHEK COMFORT CURVE STRIP VI SCH ×6 (05:14→21:05)
[2022-08-04] MEDS: InsuLIN REG 1unit/0.01ml Soln (100units/ml) SC SCH ×6 (05:15→21:06)
[2022-08-04] MEDS: GABAPENTIN 100 MG CAP GT SCH ×3 (06:00→22:52)
[2022-08-04] MEDS: prednisoLONE ACETATE 1% OPTH SUSP 5ML RIGHTEYE SCH ×2 (06:48→11:43)
[2022-08-04] MEDS: MOXIFLOXACIN OP SCH ×2 (06:48→11:44)
[2022-08-04] MEDS: NOREPINEPHRINE 8 MG/250ML KIT 250 ML IV SCH (08:12)
[2022-08-04] MEDS: ASPirin 81 mg TAB GT SCH (09:32)
[2022-08-04] MEDS: CLOPIDOGREL BISULFATE 75 MG TAB GT SCH (09:32)
[2022-08-04] MEDS: PANTOPRAZOLE 40 MG/10 ML VIAL INJ IV SCH (09:32)
[2022-08-04] MEDS: MUPIROCIN 2% OINT 15gm or 22gm FOR MRSA NARES EACHNOSTRI SCH ×2 (09:33→22:52)
[2022-08-04] MEDS: INSULIN LANTUS (GLARGINE) 1 /0.01ml (100units/ml) SC SCH (10:00)
[2022-08-04] MEDS ORDERED: diphenhdrAMINE HCL 50 MG/1 ML VL IV ONE (22:45)
[2022-08-05] MEDS: ACCU-CHEK COMFORT CURVE STRIP VI SCH ×6 (00:23→20:25)
[2022-08-05] MEDS: InsuLIN REG 1unit/0.01ml Soln (100units/ml) SC SCH ×6 (00:24→20:00)
[2022-08-05] MEDS: hydrALAZINE HCL 20 MG/ML VL IV PRN (02:20)
[2022-08-05 03:30] VITALS: BP 120/56
[2022-08-05 05:00] VITALS: BP 130/58
[2022-08-05] MEDS: MORPHINE SULFATE INJ 2 MG/ml SYRG IV PRN (05:04)
[2022-08-05] MEDS: GABAPENTIN 100 MG CAP GT SCH ×3 (05:43→21:20)
[2022-08-05 09:08] VITALS: BP 142/58
[2022-08-05] MEDS: ASPirin 81 mg TAB GT SCH (09:08)
[2022-08-05] MEDS: PANTOPRAZOLE 40 MG/10 ML VIAL INJ IV SCH (09:09)
[2022-08-05] MEDS: CLOPIDOGREL BISULFATE 75 MG TAB GT SCH (09:09)
[2022-08-05] MEDS: INSULIN LANTUS (GLARGINE) 1 /0.01ml (100units/ml) SC SCH (09:38)
[2022-08-05 12:59] VITALS: BP 132/47
[2022-08-05] MEDS ORDERED: POTASSIUM CHL 20 Meq TABLET PO ONE ×2 (14:15→20:45)
[2022-08-05 16:36] VITALS: BP 111/62
[2022-08-05 18:16] LABS: Basophils # (auto) 0 10 ^3/uL (0-0.2); Basophils % (auto) 0.5 % (0.0-2.0); Eosinophils # (auto) 0.2 10 ^3/uL (0-0.8); Eosinophils % (auto) 2.7 % (0.0-7.0); Hemoglobin 13.1 g/dL (13.5-17.5); Lymphocytes % (auto) 12.4 % (10.0-50.0); Mean Corpuscular Hemoglobin 30.8 pg (28.0-32.0); Mean Corpuscular Hgb Conc. 33.6 g/dL (32.0-36.0); Mean Corpuscular Volume 91.9 fL (80.0-100.0); Monocytes % (auto) 11.9 % (0.0-12.0); Neutrophils # (auto) 5.8 10 ^3/uL (1.6-8.6); Neutrophils % (auto) 72.5 % (37.0-80.0); Red Blood Cells 4.25 10^6/uL (4.5-5.90); Red Cell Distribution Width 13.7 % (11.8-14.3)
[2022-08-05 18:31] LABS: Urine WBC None Seen /hpf (0 - 3)
[2022-08-05 18:49] LABS: Urine Bacteria NONE SEEN /hpf (None Seen); Urine Blood 3+ /uL (Negative); Urine Mucus FEW (None Seen); Urine Specific Gravity 1.019 (1.001-1.035)
[2022-08-05 20:19] LABS: Albumin 2.2 g/dL (3.4-5.0); BUN/Creatinine Ratio 28.3; Bilirubin, Total 0.6 mg/dL (0.2-1.0); Calcium 8.6 mg/dL (8.5-10.1); Total Protein 5.1 g/dL (6.4-8.2)
[2022-08-05] MEDS ORDERED: cefTRIAXone 1GM/50ML D5W 50 ML IV ONE (20:45)
[2022-08-05 22:00] VITALS: BP 159/73
[2022-08-06] MEDS: MORPHINE SULFATE INJ 2 MG/ml SYRG IV PRN ×4 (00:27→23:09)
[2022-08-06] MEDS: ACCU-CHEK COMFORT CURVE STRIP VI SCH ×7 (00:27→23:17)
[2022-08-06] MEDS: hydrALAZINE HCL 20 MG/ML VL IV PRN (03:19)
[2022-08-06] MEDS: InsuLIN REG 1unit/0.01ml Soln (100units/ml) SC SCH ×7 (04:00→23:21)
[2022-08-06 04:45] VITALS: BP 119/60
[2022-08-06] MEDS: GABAPENTIN 100 MG CAP GT SCH ×3 (05:52→23:01)
[2022-08-06 05:58] LABS: Albumin 2.3 g/dL (3.4-5.0); Calcium 8.5 mg/dL (8.5-10.1); Potassium 3.6 mmol/L (3.5-5.1)
[2022-08-06 06:01] LABS: BUN/Creatinine Ratio 24.2; Bilirubin, Total 0.6 mg/dL (0.2-1.0); Total Protein 4.7 g/dL (6.4-8.2)
[2022-08-06 09:00] VITALS: BP 148/67
[2022-08-06] MEDS: PANTOPRAZOLE 40 MG/10 ML VIAL INJ IV SCH (09:40)
[2022-08-06] MEDS: cefTRIAXone 1GM/50ML D5W 50 ML IV SCH (09:41)
[2022-08-06] MEDS: CLOPIDOGREL BISULFATE 75 MG TAB GT SCH (09:42)
[2022-08-06] MEDS: ASPirin 81 mg TAB GT SCH (09:42)
[2022-08-06] MEDS: INSULIN LANTUS (GLARGINE) 1 /0.01ml (100units/ml) SC SCH (10:44)
[2022-08-06 12:36] VITALS: BP 114/48
[2022-08-06 17:00] VITALS: BP 122/53
[2022-08-06 22:00] VITALS: BP 107/44
[2022-08-07] MEDS: guaiFENesin-DM 100/10mg/5ml SYR PO PRN ×2 (02:32→14:51)
[2022-08-07] MEDS: InsuLIN REG 1unit/0.01ml Soln (100units/ml) SC SCH ×5 (04:00→20:00)
[2022-08-07] MEDS: ACCU-CHEK COMFORT CURVE STRIP VI SCH ×6 (04:21→20:56)
[2022-08-07 05:00] VITALS: BP 139/52
[2022-08-07] MEDS: GABAPENTIN 100 MG CAP GT SCH ×3 (05:36→21:03)
[2022-08-07 09:17] VITALS: BP 121/46
[2022-08-07] MEDS: ASPirin 81 mg TAB GT SCH (09:39)
[2022-08-07] MEDS: CLOPIDOGREL BISULFATE 75 MG TAB GT SCH (09:39)
[2022-08-07] MEDS: cefTRIAXone 1GM/50ML D5W 50 ML IV SCH (09:39)
[2022-08-07] MEDS: PANTOPRAZOLE 40 MG/10 ML VIAL INJ IV SCH (09:40)
[2022-08-07] MEDS: INSULIN LANTUS (GLARGINE) 1 /0.01ml (100units/ml) SC SCH (09:41)
[2022-08-07 12:39] VITALS: BP 163/45
[2022-08-07] MEDS: HYDROcodone-ACET 5/325MG TAB PO PRN ×2 (13:31→21:06)
[2022-08-07 16:40] VITALS: BP 151/53
[2022-08-07 22:00] VITALS: BP 169/65
[2022-08-08] MEDS: ACCU-CHEK COMFORT CURVE STRIP VI SCH ×5 (01:17→16:00)
[2022-08-08] MEDS: InsuLIN REG 1unit/0.01ml Soln (100units/ml) SC SCH ×5 (04:00→16:00)
[2022-08-08 05:00] VITALS: BP 131/56
[2022-08-08] MEDS: GABAPENTIN 100 MG CAP GT SCH ×2 (05:05→13:47)
[2022-08-08] MEDS: HYDROcodone-ACET 5/325MG TAB PO PRN ×2 (05:07→10:34)
[2022-08-08 06:53] LABS: Urine Bacteria NONE SEEN /hpf (None Seen); Urine Blood 3+ /uL (Negative); Urine Mucus FEW (None Seen); Urine Specific Gravity 1.012 (1.001-1.035); Urine WBC 15 /hpf (0 - 3); Urine WBC Clumps PRESENT /hpf (None Seen)
[2022-08-08 09:00] VITALS: BP 163/96
[2022-08-08 10:04] VITALS: BP 166/68
[2022-08-08] MEDS: PANTOPRAZOLE 40 MG/10 ML VIAL INJ IV SCH (10:20)
[2022-08-08] MEDS: CLOPIDOGREL BISULFATE 75 MG TAB GT SCH (10:21)
[2022-08-08] MEDS: ASPirin 81 mg TAB GT SCH (10:21)
[2022-08-08] MEDS: INSULIN LANTUS (GLARGINE) 1 /0.01ml (100units/ml) SC SCH (10:36)
[2022-08-08 12:42] VITALS: BP 130/61
[2022-08-09] MEDS ORDERED: cefTRIAXone 1GM/50ML D5W 50 ML IV SCH (09:00)
== END 2022-08-08 17:00 | disposition home health service (06) | DRG 870 ==
LOC: EDBD 05:16 → ER 05:20 → TELE 12:34 → ICU WEST 07-30 04:59 → TELE-EAST 08-04 18:37
PROVIDERS: ADMIT Internal Medicine; ATTEND Internal Medicine
PROC: 0BH17EZ Insertion of Endotracheal Airway into Trachea, Via Natural or Artificial Opening (ICD-10-PCS; 2022-07-27)
PROC: 5A1955Z Respiratory Ventilation, Greater than 96 Consecutive Hours (ICD-10-PCS; principal; 2022-07-30)
PROC: 0B9B8ZZ Drainage of Left Lower Lobe Bronchus, Via Natural or Artificial Opening Endoscopic (ICD-10-PCS; 2022-08-01)
PROC: 5A1945Z Respiratory Ventilation, 24-96 Consecutive Hours (ICD-10-PCS; 2022-08-06)
DX: A41.89 Other specified sepsis (principal); E11.10 Type 2 diabetes mellitus with ketoacidosis without coma; G93.41 Metabolic encephalopathy; J96.01 Acute respiratory failure with hypoxia; J15.3 Pneumonia due to streptococcus, group B; N17.0 Acute kidney failure with tubular necrosis; R65.21 Severe sepsis with septic shock; J98.11 Atelectasis; J44.0 Chronic obstructive pulmonary disease with (acute) lower respiratory infection; K57.32 Diverticulitis of large intestine without perforation or abscess without bleeding; L03.116 Cellulitis of left lower limb; Z20.822 Contact with and (suspected) exposure to COVID-19; E11.21 Type 2 diabetes mellitus with diabetic nephropathy; E66.9 Obesity, unspecified; E78.5 Hyperlipidemia, unspecified; F10.20 Alcohol dependence, uncomplicated; I11.0 Hypertensive heart disease with heart failure; I25.10 Atherosclerotic heart disease of native coronary artery without angina pectoris; I50.9 Heart failure, unspecified; J44.9 Chronic obstructive pulmonary disease, unspecified; Z68.33 Body mass index [BMI] 33.0-33.9, adult; E83.42 Hypomagnesemia; E87.6 Hypokalemia; Z98.61 Coronary angioplasty status; R31.0 Gross hematuria; Z91.14 Patient's other noncompliance with medication regimen; Z82.49 Family history of ischemic heart disease and other diseases of the circulatory system; Z79.82 Long term (current) use of aspirin; Z79.4 Long term (current) use of insulin; Z79.02 Long term (current) use of antithrombotics/antiplatelets
CPT/HCPCS: 31500; 31622; 36415; 36600; 71045; 71260; 74176; 76775; 80048; 80053; 81001; 82010; 82805; 82962; 83036; 83690; 83735; 83930; 84100; 84132; 84484; 85007; 85025; 85027; 85379; 87040; 87070; 87077; 87081; 87086; 87088; 87186; 87205; 87426; 92507; 92610; 93005; 93306; 93970; 93971; 94002; 94003; 96361; 96365; 96372; 96375; 97116; 97163; 97530; 99291; C9113; G0378; J0171; J0696; J1815; J2250; J2405; J2704; J3480; J7060

== ENCOUNTER 2023-08-31 05:40 | Day surgery (SDC) | payer OTHER, MEDICAID ==
[~2023-08-31] VITALS: Ht 172.7 cm; Wt 75.3 kg
[~2023-08-31 05:40] MED LIST changes: -AMLO-489 PO; +AMLO1TAB22 PO; -ASPI81CH43 GT; -LEVA3NEB9 IN; -LEVAAER4 IN; -METF-370 PO; -OMEP20CA74 OR; +PANT40T PO; -POTA-220 PO; -TRIA25TA3 PO; -ZOLP10TA6 PO
[2023-08-31] MEDS ORDERED: IODIXANOL 320MG/ML 100ML BTL IV ONE ×2 (07:47→08:36)
[2023-08-31] MEDS ORDERED: LIDOCAINE 2%HCL (LOCAL ANESTH.) INJ 20ML MDV ONE (07:47)
[2023-08-31] MEDS ORDERED: HEPARIN IN NS 1000Units/500mL 1,500 ML ONE (07:47)
[2023-08-31] MEDS ORDERED: fentaNYL CITRATE 100 MCG/2 ML VL ONE (08:09)
[2023-08-31] MEDS ORDERED: MIDAZOLAM HCL 2MG/2ML 2ml VIAL (1mg/ml) ONE (08:09)
[2023-08-31] MEDS ORDERED: SODIUM CHL 0.9% 50 ML ONE (08:09)
[2023-08-31] MEDS ORDERED: ANGIOMAX 250 MG VIAL IV ONE (08:09)
[2023-08-31] MEDS ORDERED: VERAPAMIL 2.5MG/ML INJ 2ML VIAL IV ONE (08:09)
[2023-08-31] MEDS ORDERED: HYDROmorphone HCL 2 MG/ML VL/or syr ONE (08:47)
== END 2023-08-31 11:25 | disposition home or self-care (01) ==
LOC: CATH 05:40
PROVIDERS: ATTEND Internal Medicine
DX: I73.9 Peripheral vascular disease, unspecified (principal); J44.9 Chronic obstructive pulmonary disease, unspecified; I50.9 Heart failure, unspecified; I20.9 Angina pectoris, unspecified; Z87.01 Personal history of pneumonia (recurrent); Z72.89 Other problems related to lifestyle; Z82.49 Family history of ischemic heart disease and other diseases of the circulatory system; Z79.4 Long term (current) use of insulin; Z79.84 Long term (current) use of oral hypoglycemic drugs; Z98.890 Other specified postprocedural states
CPT/HCPCS: 75710; 82962; C1725; C1761; C1769; C1887; C1894; C9772; J0583; J1170; J1644; J2250; J3010; J7030; Q9967; 99152

== ENCOUNTER 2024-05-02 07:51 | Day surgery (SDC) | payer OTHER, MEDICAID ==
[~2024-05-02] VITALS: Ht 172.7 cm; Wt 75.2 kg
[2024-05-02] VITALS (9 sets, daily range): BP systolic 109–156; BP diastolic 50–71; PULSE 69–79; RESP 11–16; TEMP 97.9; O2SAT 91–94
[2024-05-02] MEDS ORDERED: IODIXANOL 320MG/ML 100ML BTL IV ONE ×2 (08:46→09:41)
[2024-05-02] MEDS ORDERED: HEPARIN IN NS 1000Units/500mL 1,500 ML ONE (09:41)
[2024-05-02] MEDS ORDERED: MIDAZOLAM HCL 2MG/2ML 2ml VIAL (1mg/ml) ONE (09:48)
[2024-05-02] MEDS ORDERED: LIDOCAINE 2%HCL (LOCAL ANESTH.) INJ 20ML MDV ONE (09:48)
[2024-05-02] MEDS ORDERED: fentaNYL CITRATE 100 MCG/2 ML VL ONE (09:48)
[2024-05-02] MEDS ORDERED: VERAPAMIL 2.5MG/ML INJ 2ML VIAL IV ONE (10:02)
[2024-05-02] MEDS ORDERED: HEPARIN SODIUM (PORCINE) 5000 UNITS/ML 1ML VIAL ONE (10:14)
== END 2024-05-02 12:55 | disposition home or self-care (01) ==
LOC: CATH 07:51
PROVIDERS: ATTEND Internal Medicine
DX: I70.221 Atherosclerosis of native arteries of extremities with rest pain, right leg (principal); I50.9 Heart failure, unspecified; J43.9 Emphysema, unspecified; Z87.891 Personal history of nicotine dependence; Z98.890 Other specified postprocedural states; Z95.5 Presence of coronary angioplasty implant and graft; Z79.01 Long term (current) use of anticoagulants; Z82.49 Family history of ischemic heart disease and other diseases of the circulatory system
CPT/HCPCS: 75710; 82962; 93005; C1761; C1769; C1887; C1894; C9772; J1644; J2250; J3010; J7030; Q9967; 99152; 99153

== ENCOUNTER 2024-07-18 06:16 | Day surgery (SDC) | payer OTHER, MEDICAID ==
[~2024-07-18] VITALS: Ht 172.7 cm; Wt 77.1 kg
[~2024-07-18 06:16] MED LIST changes: -ALB2.5IS NEB; +CETI10TA2 PO; +CHOL100079 OR; +EMPA1TAB3 PO; +GABA-1250 PO; -GUAI100S6 PO; +LEVA1AER IN; +LISI20TA56 PO; -LORA10TA6 PO; +NITR0.4S29 SL; +OXY5T PO; -OXYC10TA44 PO; +TRIA37.586 PO
[2024-07-18] MEDS ORDERED: IODIXANOL 320MG/ML 100ML BTL IV ONE (08:03)
[2024-07-18] MEDS ORDERED: GELATIN 1 SPONGE SIZE 50 TOP ONE (08:03)
[2024-07-18] MEDS ORDERED: SODIUM CHL 0.9% 0 ML ONE (08:19)
[2024-07-18] MEDS ORDERED: LIDOCAINE 2%HCL (LOCAL ANESTH.) INJ 20ML MDV ONE (08:19)
[2024-07-18] MEDS ORDERED: MIDAZOLAM HCL 2MG/2ML 2ml VIAL (1mg/ml) ONE (08:19)
[2024-07-18] MEDS ORDERED: ANGIOMAX 250 MG VIAL IV ONE (08:19)
[2024-07-18] MEDS ORDERED: fentaNYL CITRATE 100 MCG/2 ML VL ONE (08:19)
[2024-07-18] MEDS ORDERED: VERAPAMIL 2.5MG/ML INJ 2ML VIAL IV ONE (08:56)
[2024-07-18] MEDS ORDERED: HEPARIN 1,000 UNITS/ml 1ML VIAL ONE ×2 (08:59→09:29)
[2024-07-18] MEDS ORDERED: HEPARIN SODIUM (PORCINE) 5000 UNITS/ML 1ML VIAL ONE (08:59)
--- NOTE | 2024-07-18 12:21 | DVHOP ---
DATE OF SURGERY: 07/18/2024 PREOPERATIVE DIAGNOSIS: Severe peripheral arterial disease with ischemic rest pain. POSTOPERATIVE DIAGNOSIS: Severe peripheral arterial disease with ischemic rest pain. PROCEDURES PERFORMED: Ultrasound-guided vascular access, conscious sedation administration and supervision less than 15 minutes as well as 15-30 minutes fluoroscopy use interpretation, unilateral lower extremity angiogram, first order, second order and third order catheter placement, [employer]PERATIONS of the tibial vessels and shockwave intravascular lithotripsy of the tibial vessels. DESCRIPTION OF PROCEDURE: The patient signed informed consent. Understanding risks, benefits and alternatives of the procedure, he wished to proceed. He was brought to the cardiac cath technician in n.p.o. state. He was prepped in sterile fashion. Sedation was used per cardiac protocol, administered 1 mL of 2% lidocaine to his left ankle. With an antegrade flow wall puncture, I cannulated his left anterior tibial artery, which appears to be heavily calcified and stenosed and I placed a 5-[place]i Glidesheath Slender. At this point, I took a Mongo wire after giving IV heparin and angiogram was performed. This showed the anterior tibial artery distally is patent. The mid has a 99% heavily calcific lesion and the proximal to mid had sequential 90-95% stenosis throughout the entire anterior tibial artery. The posterior tibial artery appears to be patent with mild plaquing in the TP trunk. The peroneal artery appears to be patent. Both vessels are calcified. The distal popliteal artery is patent. INTERVENTION: Over the Mongo wire, I was able to bring a 2.0 balloon x 80 throughout the mid and distal anterior tibial artery and performed several balloon inflations up to 18 atmospheres. There was still a waist given the heavy calcification. I tried to bring a 2.5 shockwave, which would only go to the distal anterior tibial artery and performed shockwave intravascular lithotripsy up to 3 atmospheres with 10 pulses delivered. I did also try a 2.5 NC balloon and performed balloon angioplasty in the mid anterior tibial artery, but was unable to bring that balloon up into the proximal. I did switch out to a stiffer wire. Over an 0.014 Quick-Cross catheter, I used a ChoicePT extra support and even over that wire, still unable to bring my shockwave balloon or my 2.5 NC balloon. At this point, I did do more [employer]PERATIONS to the distal anterior tibial artery. Angiogram was performed showing less than 30% residual stenosis in the distal and mid portion. There was still a very focal tight lesion of about 70% in the distal to mid anterior tibial artery and the proximal, anterior tibial artery still had diffuse plaquing. At this point, patient will likely need atherectomy given the heavy calcification. All guides and wires were removed and manual hold was performed. There were no immediate complications. CONCLUSION: Successful [employer]PERATIONS and shockwave intravascular lithotripsy to a greater than 95% stenosed anterior tibial artery on the left side. PLAN: Continue antiplatelet therapy. Consider atherectomy in the future. Edwin Beverly MD CM/ELDA/BORA TID: [id number] RECEIPT: [id number]
--- NOTE | 2024-08-02 13:56 | ECG ---
[facility] Test Date: 2024-07-18 Test Time: 07:52:35 Pat Name: LAURYN DOYLE Department: Room: Gender: M Classroom Assistant: KISHORE : 1950 Requested By: TOÑO MASTERSON Order Number: [id number] Reading MD: Krysten Humphrey Measurements Intervals [place] Rate: 79 P: 64 [place]: 176 QRS: -39 QRSD: 120 T: 79 QT: 368 QTc: 421 Interpretive Statements Normal sinus rhythm Left axis deviation Left ventricular hypertrophy with QRS widening Electronically Signed On 08-03-2024 11:42:47 PST by Krysten Humphrey Please click the below link to view image of tracing.
== END 2024-07-18 12:40 | disposition home or self-care (01) ==
LOC: CATH 06:16
PROVIDERS: ATTEND Internal Medicine
DX: I70.222 Atherosclerosis of native arteries of extremities with rest pain, left leg (principal); I50.9 Heart failure, unspecified; J43.9 Emphysema, unspecified; Z79.01 Long term (current) use of anticoagulants; Z87.891 Personal history of nicotine dependence; Z82.49 Family history of ischemic heart disease and other diseases of the circulatory system; Z88.8 Allergy status to other drugs, medicaments and biological substances; Z95.5 Presence of coronary angioplasty implant and graft; Z79.899 Other long term (current) drug therapy; Z79.84 Long term (current) use of oral hypoglycemic drugs
CPT/HCPCS: 75710; 82962; C1725; C1761; C1769; C1887; C1894; C9772; J1644; J2250; J3010; J7030; Q9967; 99152; 99153